=== PATIENT | female | born 1975 | race African-American/Black ===

== ENCOUNTER 2018-09-29 12:32 | Emergency (ER) | payer OTHER ==
[~2018-09-29] VITALS: Ht 170.2 cm; Wt 99.8 kg
[~2018-09-29 12:32] MED LIST: CIPROFLOXACIN500 M2 ORAL; NKM; PEPCID20 MG ORAL; PRILOSEC20 MG ORAL; TRAMADOL HCL50 MG ORAL; ZOFRAN ODT4 MG ORAL; ZOFRAN4 MG ORAL
[2018-09-29 12:38] VITALS: BP 136/93
--- NOTE | 2018-09-29 13:14 | Emergency Room Report ---
History of Present Illness General Chief Complaint: Skin Rash/Abscess Source: Patient Present Illness HPI 43-year-old female presents to the emergency department complaining of 7 out of 10 severity burning and itching insect bite to the medial left ankle since yesterday. Patient reports swelling, erythema, warmth and new onset of clear discharge as of this morning. Patient reports one other insect bite on the right ankle that is just itchy at this time. pt. denies fevers, chills or swollen tender lymph nodes. Denies lesions/rashes elsewhere on the body. Denies new medications or body washes or creams. Denies swelling of the lips, tongue , throat or airway. Denies wheezing, or shortness of breath. Denies recent travel , recent illness or ill contacts. denies blisters, oral lesions, or sloughing of the skin. Not UTD with Tdap. Allergies: Coded Allergies: No Known Allergies (Unverified , 08/21/14) Patient History Past Medical History: see triage record Past Surgical History: none Pertinent Family History: none Last Menstrual Period: 09/21/2018 Now: No Reviewed Nursing Documentation: PMH: Agreed; PSxH: Agreed Nursing Documentation-PMH Past Medical History: No History, Except For Hx Gastrointestinal Problems: Yes - gastritis Review of Systems All Other Systems: negative except mentioned in HPI Physical Exam Vital Signs Date Time Temp Pulse Resp B/P (MAP) Pulse Ox O2 Delivery O2 Flow Rate FiO2 09/29/18 12:38 98.2 90 20 136/93 95 Room Air Sp02 EP Interpretation: reviewed, normal General Appearance: no apparent distress, alert, GCS 15, non-toxic Head: normocephalic, atraumatic Eyes: bilateral eye normal inspection, bilateral eye PERRL ENT: hearing grossly normal, normal pharynx, no angioedema, normal voice, moist mucus membranes Neck: full range of motion, no meningismus, no bony tend, other - no stridor Respiratory: chest non-tender, lungs clear, normal breath sounds, no respiratory distress, no accessory muscle use, no wheezing, speaking full sentences Cardiovascular #1: regular rate, rhythm Gastrointestinal: normal bowel sounds, non tender, soft Rectal: deferred Genitourinary: normal inspection Musculoskeletal: back normal, gait/station normal, normal range of motion, non- tender Neurologic: alert, oriented x3, responsive, motor strength/tone normal, sensory intact, speech normal, grossly normal Psychiatric: judgement/insight normal Skin: rash - 2mm swollen erythematous and indurated inset bite on the medial left ankle. surrounding erythema as well. there is a 2 mm indurated insect bite on the right medial ankle without erythema. no blisters or vesicles. Lymphatic: no adenopathy Medical Decision Making PA Attestation Dr. Kelley is my supervising Physician whom patient management has been discussed with. Diagnostic Impression: Primary Impression: Insect bite of ankle, infected Qualified Codes: S90.562A - Insect bite (nonvenomous), left ankle, initial encounter; L08.9 - Local infection of the skin and subcutaneous tissue, unspecified; W57.XXXA - Bitten or stung by nonvenomous insect and other nonvenomous arthropods, initial encounter ER Course 43-year-old female presents to the emergency department complaining of 7 out of 10 severity burning and itching insect bite to the medial left ankle since yesterday. Patient reports swelling, erythema, warmth and new onset of clear discharge as of this morning. Patient reports one other insect bite on the right ankle that is just itchy at this time. pt. denies fevers, chills or swollen tender lymph nodes. Denies lesions/rashes elsewhere on the body. Denies new medications or body washes or creams. Denies swelling of the lips, tongue , throat or airway. Denies wheezing, or shortness of breath. Denies recent travel , recent illness or ill contacts. denies blisters, oral lesions, or sloughing of the skin Ddx considered but are not limited to insect bite, cellulitis, scabies, shingles , varicella, dermatitis, urticaria, eczema, tinea, viral exanthem, SJS Vital signs: are WNL, pt. is afebrile H&PE are most consistent with insect bite with secondary cellulitis no evidence of impending airway compromise or anaphylaxis. ORDERS: none required at this time, the diagnosis is clinical ED INTERVENTIONS: -Tdap. DISCHARGE: At this time pt. is stable for d/c to home. Will provide printed patient care instructions, and any necessary prescriptions. Care plan and follow up instructions have been discussed with the patient prior to discharge. Last Vital Signs Date Time Temp Pulse Resp B/P (MAP) Pulse Ox O2 Delivery O2 Flow Rate FiO2 7/19/19 12:38 98.2 90 20 136/93 (107) 95 Room Air Disposition: HOME, SELF-CARE Condition: Stable Scripts Hydrocortisone 2% Cream (ANTI-ITCH 2% CREAM) Y Cr 1 APPLIC TP Q6HR, #28 GM Prov: Galina Yates 09/29/18 Trimethoprim/Sulfamethoxazole 160/800* (BACTRIM DS TABLET*) 1 Each Tablet 1 TAB ORAL TWICE A DAY for 7 Days, #14 TAB Prov: Galina Yates 09/29/18 Cephalexin* (KEFLEX*) 500 Mg Capsule 500 MG ORAL EVERY 12 HOURS for 7 Days, #14 CAP 0 Refills Prov: Galina Yates 09/29/18 Departure Forms: Return to Work Return to Work Date: Oct 02, 2018 Work Restrictions: None Other Restrictions: please excuse pt. for 09/29/2018. Return to Full Activity: Oct 02, 2018 Patient Instructions: Insect Bite, [id number] Additional Instructions: Take medications as directed. Follow up with a Primary Care Provider in 3-5 days, even if your symptoms have resolved. --Please review list of primary care clinics, if you do not already have a primary care provider Return sooner to ED if new symptoms occur, or current symptoms become worse. - Please note that this Emergency Department Report was dictated using [email or web address] helper technology software, occasionally this can lead to erroneous entry secondary to interpretation by the dictation equipment. Galina Yates Sep 29, 2018 13:14
[2018-09-29] MEDS ORDERED: BACTRIM DS TAB1 EAC1 ORAL (13:16)
[2018-09-29] MEDS ORDERED: ANTI-ITCH28 G1 TP (13:16)
[2018-09-29] MEDS: Tetanus/Diptheria/Pertussis IM ONE (13:16)
[2018-09-29] MEDS ORDERED: CEPHALEXIN500 MG ORAL (13:16)
[2018-09-29 13:25] VITALS: BP 136/93
== END 2018-09-29 13:24 | disposition home or self-care (01) ==
LOC: EMR 13:15
DX: S90.562A Insect bite (nonvenomous), left ankle, initial encounter (principal); L08.9 Local infection of the skin and subcutaneous tissue, unspecified; W57.XXXA Bitten or stung by nonvenomous insect and other nonvenomous arthropods, initial encounter; Y92.9 Unspecified place or not applicable; Z23 Encounter for immunization
CPT/HCPCS: 90471; 90715; 99283

== ENCOUNTER 2018-10-17 16:22 | Emergency (ER) | payer OTHER ==
[~2018-10-17] VITALS: Ht 170.2 cm; Wt 108.9 kg
[~2018-10-17 16:22] MED LIST changes: +ANTI-ITCH28 G1 TP; +BACTRIM DS TAB1 EAC1 ORAL; +CEPHALEXIN500 MG ORAL
[2018-10-17 16:28] VITALS: BP 157/103
--- NOTE | 2018-10-17 16:35 | NUR ---
ED Nurse Note: Patient walked into ED c/o coughing for 2 weeks. patient reports itchiness on the throat and nose. patient is alert awake x4 ambulatory.
--- NOTE | 2018-10-17 17:06 | Emergency Room Report ---
History of Present Illness General Chief Complaint: Upper Respiratory Illness Source: Patient Present Illness HPI 43-year-old female presents to the emergency department complaining of itchy nose, sneezing, dry cough x2 weeks. Patient denies fevers or chills she reports her daughter recently was diagnosed with bronchitis and finished course of antibiotics. Patient states that she also finished a course of antibiotics and does not feel that she has a bacterial infection at this time. Patient denies recent travel she reports history of some allergies in the past she states that she took some montelukast and Claritin with no relief of her symptoms. Patient reports that she is unable to breathe easily through her nose she reports 5/10 in severity pressure in the bilateral sinuses she reports intermittent frontal headaches she denies photophobia, neck pain or stiffness. Patient denies purulent discharge. Dry sore throat and states that her cough is worse at night and in the early mornings. Patient denies history of acid reflux. Chest pain, palpitations, sudden onset of her headache, shortness of breath or wheezing. Pt. with hx of smoking but no longer smokers, no Hx of asthma or COPD. Allergies: Coded Allergies: No Known Allergies (Unverified , 08/21/14) Patient History Past Medical History: see triage record Past Surgical History: none Pertinent Family History: none Last Menstrual Period: 10/14/2018 Now: No Immunizations: UTD Reviewed Nursing Documentation: PMH: Agreed; PSxH: Agreed Nursing Documentation-PMH Past Medical History: No History, Except For Hx Gastrointestinal Problems: Yes - gastritis, C section Review of Systems All Other Systems: negative except mentioned in HPI Physical Exam Vital Signs Date Time Temp Pulse Resp B/P (MAP) Pulse Ox O2 Delivery O2 Flow Rate FiO2 10/17/18 16:28 98.2 75 18 157/103 97 Room Air Sp02 EP Interpretation: reviewed, normal General Appearance: no apparent distress, alert, GCS 15, non-toxic Head: normocephalic, atraumatic Eyes: bilateral eye normal inspection, bilateral eye PERRL ENT: hearing grossly normal, normal pharynx, normal voice, TMs + canals normal , uvula midline, moist mucus membranes, nasal congestion - Bilateral Turbinates are boggy and swollen, frontal maxillary sinus ttp bilaterally. Neck: full range of motion, no meningismus, no bony tend Respiratory: chest non-tender, lungs clear, normal breath sounds, no wheezing, speaking full sentences Cardiovascular #1: regular rate, rhythm Musculoskeletal: back normal, gait/station normal, normal range of motion, non- tender Neurologic: alert, oriented x3, responsive, motor strength/tone normal, sensory intact, normal gait, speech normal, grossly normal Psychiatric: judgement/insight normal Lymphatic: no adenopathy Medical Decision Making PA Attestation Dr. Flores is my supervising Physician whom patient management has been discussed with. Diagnostic Impression: Primary Impression: Rhinitis Qualified Codes: J30.9 - Allergic rhinitis, unspecified Additional Impression: Sinusitis nasal Qualified Codes: J01.10 - Acute frontal sinusitis, unspecified ER Course 43-year-old female presents to the emergency department complaining of itchy nose, sneezing, dry cough x2 weeks. Patient denies fevers or chills she reports her daughter recently was diagnosed with bronchitis and finished course of antibiotics. Patient states that she also finished a course of antibiotics and does not feel that she has a bacterial infection at this time. Patient denies recent travel she reports history of some allergies in the past she states that she took some montelukast and Claritin with no relief of her symptoms. Patient reports that she is unable to breathe easily through her nose she reports 5/10 in severity pressure in the bilateral sinuses she reports intermittent frontal headaches she denies photophobia, neck pain or stiffness. Patient denies purulent discharge. Dry sore throat and states that her cough is worse at night and in the early mornings. Patient denies history of acid reflux. Chest pain, palpitations, sudden onset of her headache, shortness of breath or wheezing. Pt. with hx of smoking but no longer smokers, no Hx of asthma or COPD. Ddx considered but are not limited to sinusitis, rhinitis, URI, pneumonia, PE, strep pharyngitis, meningitis. Vital signs: Pt.is afebrile VS are WNL H&PE are most consistent with allergic rhinitis and sinusitis with cough secondary to increased mucus production. Patient is nontoxic in appearance in no acute distress and I do not suspect an acute bacterial infection at this time. Due to pt. having bilateral symptoms and her sinus pressure began this week, has already completed a course of abx, I do not feel additional abx would be of benefit at this time. ORDERS: none required at this time, the diagnosis is clinical ED INTERVENTIONS: None required at this time. -I do not identify an emergent condition at this time. With current presentation , pt. is stable for close outpatient follow up and conservative treatment. D/ w pt. to return promptly to ED with worsening or new symptoms.- Pt. verbalizes' understanding and agreement with proposed treatment plan. DISCHARGE: At this time pt. is stable for d/c to home. Will provide printed patient care instructions, and any necessary prescriptions. Care plan and follow up instructions have been discussed with the patient prior to discharge. Last Vital Signs Date Time Temp Pulse Resp B/P (MAP) Pulse Ox O2 Delivery O2 Flow Rate FiO2 10/17/18 16:53 75 18 Room Air 10/17/18 16:28 98.2 157/103 (121) 97 Disposition: HOME, SELF-CARE Condition: Stable Scripts Codeine/Promethazine Hcl* (PROMETHAZINE-CODEINE SYRUP*) 118 Ml Syrup 5 ML ORAL Q6H PRN for For Cough, #120 ML 0 Refills Prov: Galina Yates 10/17/18 Fluticasone Propionate* (FLUTICASONE PROPIONATE*) 16 Gm [place].susp 1 SPRAY NASAL DAILY, #1 EA Prov: Galina Yates 10/17/18 Cetirizine Hcl* (ZYRTEC*) 10 Mg Tablet 10 MG ORAL DAILY, #30 TAB 0 Refills Prov: Galina Yates 10/17/18 Oxymetazoline HCl (Afrin) 15 Ml [place] 2 SPRAYS NASAL TWICE A DAY for 3 Days, #30 SPRAY Do not use for more than 3 days in her room. Prov: Galnia Yates 10/17/18 Referrals: [facility],REFERRING (PCP) Patient Instructions: Allergic Rhinitis, Sinusitis, Adult, [id number] Additional Instructions: Take medications as directed. *DO NOT USE AFRIN SPRAY FOR MORE THAN 3 DAYS IN A ROW Follow up with a Primary Care Provider in 3-5 days,FOR ENT ( EARS,NOSE, THROAT Specialist) REFERRAL even if your symptoms have resolved. --Please review list of primary care clinics, if you do not already have a primary care provider Return sooner to ED if new symptoms occur, or current symptoms become worse. Do not drink alcohol, drive, or operate heavy machinery while taking Cough Syrup -- as this may cause drowsiness. - Please note that this Emergency Department Report was dictated using [employer] mgr technology software, occasionally this can lead to erroneous entry secondary to interpretation by the dictation equipment. Galina Yates Oct 17, 2018 17:06
[2018-10-17] MEDS ORDERED: ZYRTEC10 MG ORAL (17:13)
[2018-10-17] MEDS ORDERED: FLUTICASONE PRO16 G1 NASAL (17:13)
[2018-10-17] MEDS ORDERED: AFRIN NASAL SPR30 ML NASAL (17:13)
[2018-10-17] MEDS ORDERED: PROMETHAZINE-C118 M1 ORAL (17:13)
[2018-10-17 17:40] VITALS: BP 157/103
--- NOTE | 2018-10-17 17:40 | NUR ---
ER DISCHARGE NOTE: Patient is cleared to be discharged per ALEJANDRO NAVARRO, pt is aox4, on room air, with stable vital signs. pt was given dc and prescription instructions, pt was able to verbalize understanding, pt id band removed without complications. pt is able to ambulate with steady gait. pt took all belongings.
== END 2018-10-17 17:40 | disposition home or self-care (01) ==
LOC: EMR 16:45
DX: J30.9 Allergic rhinitis, unspecified (principal); J01.10 Acute frontal sinusitis, unspecified; Z87.891 Personal history of nicotine dependence
CPT/HCPCS: 99282

== ENCOUNTER 2018-11-17 21:13 | Emergency (ER) | payer OTHER ==
[~2018-11-17] VITALS: Ht 170.2 cm; Wt 113.4 kg
[~2018-11-17 21:13] MED LIST changes: +AFRIN NASAL SPR30 ML NASAL; +FLUTICASONE PRO16 G1 NASAL; +PROMETHAZINE-C118 M1 ORAL; +ZYRTEC10 MG ORAL
--- NOTE | 2018-11-17 21:28 | NUR ---
ED Nurse Note: pt walked in c/o cough, pt reports she had it for past two months but progressively worsening, pt reports she was seen by a doctor and the doctor stated she has asthma and gave breathing but no relief. pt states she has been using inhaler but no relief as well. noted mild wheezing on LS to ascultation, will cont monitor. noted pt dry cough.
--- NOTE | 2018-11-17 21:37 | NUR ---
ED Nurse Note: called RT for breathing tx.
[2018-11-17 21:41] VITALS: BP 132/90
[2018-11-17] MEDS ORDERED: Albuterol/Ipratropium 3ml neb HHN ONE (21:45)
--- NOTE | 2018-11-17 21:45 | NUR ---
ED Nurse Note: RT at the bedside for breathing tx xray at the bedside.
--- NOTE | 2018-11-17 22:37 | Diagnostic Imaging Report ---
EXAM: XR Chest, 1 View CLINICAL HISTORY: SOB TECHNIQUE: Frontal view of the chest. COMPARISON: No relevant prior studies available. FINDINGS: Lungs: Unremarkable. No consolidation. Pleural space: Unremarkable. No pneumothorax. Heart: Unremarkable. No cardiomegaly. Mediastinum: Unremarkable. Bones/joints: Unremarkable. IMPRESSION: No evidence of acute pulmonary disease
[2018-11-17] MEDS ORDERED: ZITHROMAX250 MG ORAL (22:44)
[2018-11-17] MEDS ORDERED: ADULT WAL-100 MG/5 M ORAL (22:44)
--- NOTE | 2018-11-17 22:55 | NUR ---
ED Nurse Note: pt cleared to be d/c per ERMD, pt discharge and aftercare instruction provided w/ prescription, pt education done via discussion and handout, pt advised to follow up with pcp or return to ed if changes in condition, pt verbalized understanding and agrees with plan, vss, ambulatory w/ steady gait, left w/ all belongings.
[2018-11-17 22:56] VITALS: BP 125/76
--- NOTE | 2018-11-17 23:13 | Emergency Room Report ---
History of Present Illness General Chief Complaint: Upper Respiratory Illness Source: Patient Present Illness HPI Patient presents for nonproductive cough for several weeks, gradual onset prior to arrival. mild headache and associated sore throat, increased nasal congestion. Taking over the counter cough medications. Reports no fever. Prior history of asthma some chest tightness. No leg swelling or pain. No oral contraceptive use. Allergies: Coded Allergies: No Known Allergies (Unverified , 08/21/14) Patient History Past Medical History: see triage record Last Menstrual Period: 10/2018 Now: No Reviewed Nursing Documentation: PMH: Agreed; PSxH: Agreed Nursing Documentation-PMH Hx Asthma: Yes Hx Gastrointestinal Problems: Yes - gastritis, C section Review of Systems All Other Systems: negative except mentioned in HPI Physical Exam Vital Signs Date Time Temp Pulse Resp B/P (MAP) Pulse Ox O2 Delivery O2 Flow Rate FiO2 11/17/18 21:19 98.2 89 16 132/90 (104) 98 Room Air 11/17/18 21:49 21 Sp02 EP Interpretation: reviewed, normal General Appearance: normal inspection, well appearing, no apparent distress, alert, GCS 15 Head: atraumatic ENT: hearing grossly normal, normal voice, other - rhinorhea, nasal mucosa swelling Neck: normal inspection, full range of motion, supple, no bony tend Respiratory: normal inspection, no respiratory distress, no retraction, wheezing Cardiovascular #1: regular rate, rhythm, no edema Gastrointestinal: normal inspection, normal bowel sounds, non tender, soft, no guarding, no hernia Genitourinary: no CVA tenderness Musculoskeletal: normal inspection, back normal, normal range of motion Neurologic: normal inspection, alert, responsive, speech normal Psychiatric: normal inspection, judgement/insight normal, mood/affect normal Medical Decision Making Diagnostic Impression: Primary Impression: Asthma Additional Impression: Upper respiratory infection ER Course Patient presented for cough. Differential diagnosis included but was not limited to upper respiratory infection, tuberculosis, pneumonia, asthma, chronic bronchitis, foreign body, medication reaction, among others. Patient's clinical picture is benign and patient does not appear to require laboratory testing at this time. She was given a breathing treatment. Patient will be given prescriptions for medication for symptomatic treatment as well as antibiotics. Currently on oral steroids. Patients presentation is consistent with a secondary bacterial infection from a viral illness. Patient was advised to follow up with primary care physician for recheck. Patient is to return if worse or any concerns. Last Vital Signs Date Time Temp Pulse Resp B/P (MAP) Pulse Ox O2 Delivery O2 Flow Rate FiO2 11/17/18 22:56 97.8 85 16 125/76 100 Room Air 11/17/18 21:51 21 Status: improved Disposition: HOME, SELF-CARE Condition: Stable Scripts Azithromycin* (ZITHROMAX*) 250 Mg Tablet 250 MG ORAL DAILY, #6 TAB 0 Refills Take two tables once daily for 1 day, then one tablet once daily for 4 days. Prov: Mayco Fuentes MD 11/17/18 Guaifenesin* (ADULT WAL-TUSSIN*) 100 Mg/5 Ml Liquid 10 ML ORAL Q4H, #120 ML Prov: Mayco Fuentes MD 11/17/18 Referrals: NON PHYSICIAN (PCP) Patient Instructions: Asthma, Adult Mayco Fuentes MD Nov 17, 2018 23:13
--- NOTE | 2018-11-19 15:21 | Cardiology Report ---
APPROVED REPORT EKG Measurement Heart [id number] Normal sinus rhythm Normal ECG
== END 2018-11-17 22:56 | disposition home or self-care (01) ==
LOC: EMR 21:40
DX: J06.9 Acute upper respiratory infection, unspecified (principal); J45.909 Unspecified asthma, uncomplicated
CPT/HCPCS: 71045; 93005; 94664; 99284; J7620

== ENCOUNTER 2019-03-30 19:25 | Emergency (ER) | payer OTHER ==
[~2019-03-30] VITALS: Ht 170.2 cm; Wt 104.3 kg
[~2019-03-30 19:25] MED LIST changes: +ADULT WAL-100 MG/5 M ORAL; +ZITHROMAX250 MG ORAL
[2019-03-30] MEDS ORDERED: ALBUTEROL2.5 MG/3 M INH (19:40)
[2019-03-30] MEDS ORDERED: WIXELA 250-501 EACH IH (19:40)
[2019-03-30 19:45] VITALS: BP 157/100
--- NOTE | 2019-03-30 19:45 | NUR ---
ED Nurse Note: Pt walked into ED from home for c/o urinary frequency x1 week. Pt also reports lower abdominal pain that radiates to her back and has noticed vaginal spotting. Pt is aaox4, no cardiac or respiratory distress noted. Pt is ambulatory with steady gait, will continue to monitor.
[2019-03-30 20:44] LABS: APPEARANCE,URINE CLEAR; BILIRUBIN, URINE NEGATIVE (NEGATIVE); COLOR,URINE PALE YELLOW; GLUCOSE, URINE (UA) NEGATIVE (NEGATIVE); KETONES,URINE NEGATIVE (NEGATIVE); LEUKOCYTE ESTERASE ,URINE NEGATIVE (NEGATIVE); NITRITE,URINE NEGATIVE (NEGATIVE); PH,URINE 5 (4.5-8.0); PROTEIN,URINE NEGATIVE (NEGATIVE); UROBILINOGEN,URINE NORMAL MG/DL (0.0-1.0)
--- NOTE | 2019-03-30 20:58 | Emergency Room Report ---
History of Present Illness General Chief Complaint: Female Urogenital Problems Source: Patient Present Illness HPI 43-year-old female with history of type 2 diabetes who is noncompliant with taking metformin here complaining of 1 week of urinary frequency and urgency as well as dysuria. Complains of low back pain however denies flank pain. Complains of nausea every month with her menses. Reports that she just finished her menstruation and she still feels nauseated. Patient is sexually active and denies at this time. Denies vaginal discharge. Reports that she has never had high blood pressure in the past. Denies chest pain, shortness of breath, palpitation, headache and dizziness. Reports that she has not been seen by her primary care in a long time. Patient takes her metformin every now and then. Is in no apparent distress. Denies diffuse abdominal pain , nausea vomiting, diarrhea, fever and chills, constipation. Denies blood in urine. Allergies: Coded Allergies: No Known Allergies (Unverified , 08/21/14) Patient History Past Medical History: see triage record Past Surgical History: unable to obtain Pertinent Family History: none Last Menstrual Period: 03/14/18 Now: No Immunizations: UTD Reviewed Nursing Documentation: PMH: Agreed; PSxH: Agreed Nursing Documentation-PMH Past Medical History: No History, Except For Hx Asthma: Yes Hx Diabetes: Yes Hx Gastrointestinal Problems: Yes - gastritis, C section Review of Systems All Other Systems: negative except mentioned in HPI Physical Exam Vital Signs Date Time Temp Pulse Resp B/P (MAP) Pulse Ox O2 Delivery O2 Flow Rate FiO2 03/30/19 19:34 98.2 77 14 157/100 (119) 98 Room Air Sp02 EP Interpretation: reviewed, normal General Appearance: no apparent distress, alert, GCS 15, non-toxic Head: normocephalic, atraumatic Eyes: bilateral eye normal inspection, bilateral eye PERRL ENT: hearing grossly normal, normal pharynx, no angioedema, normal voice Neck: full range of motion, supple, no meningismus, supple/symm/no masses Respiratory: chest non-tender, lungs clear, normal breath sounds, no rhonchi, no respiratory distress, no retraction, no wheezing, speaking full sentences Cardiovascular #1: regular rate, rhythm, no edema, no murmur, normal capillary refill Gastrointestinal: normal bowel sounds, non tender, soft, non-distended, no guarding, no rebound Rectal: deferred Genitourinary: no CVA tenderness Musculoskeletal: back normal Neurologic: alert, motor strength/tone normal, oriented x3, sensory intact, responsive, speech normal Psychiatric: judgement/insight normal, memory normal, mood/affect normal, no suicidal/homicidal ideation Skin: no rash Lymphatic: no adenopathy Medical Decision Making PA Attestation All diagnoses and treatment plans were reviewed and discussed with my supervising physician Dr. Cabrales Diagnostic Impression: Primary Impression: UTI (urinary tract infection) ER Course 43-year-old female with history of type 2 diabetes who is noncompliant with taking metformin here complaining of 1 week of urinary frequency and urgency as well as dysuria. Complains of low back pain however denies flank pain. Complains of nausea every month with her menses. Reports that she just finished her menstruation and she still feels nauseated. Patient is sexually active and denies at this time. Denies vaginal discharge. Reports that she has never had high blood pressure in the past. Denies chest pain, shortness of breath, palpitation, headache and dizziness. Reports that she has not been seen by her primary care in a long time. Patient takes her metformin every now and then. Is in no apparent distress. Denies diffuse abdominal pain , nausea vomiting, diarrhea, fever and chills, constipation. Denies blood in urine. Ddx considered but are not limited to: UTI, pyelonephritis, urinary incontinence , prolapsed bladder Vital signs: are WNL, pt. is afebrile H&PE are most consistent with: UTI, ORDERS: UA, urine cx, urine test, Zofran, Keflex, Pyridium ED INTERVENTIONS: None required at this time. DISCHARGE: At this time pt. is stable for d/c to home. Will provide printed patient care instructions, and any necessary prescriptions. Care plan and follow up instructions have been discussed with the patient prior to discharge. Patient to follow-up with primary care provider, continue taking metformin, blood pressure medication may need to be started. Patient needs complete blood work. At this time patient has no acute symptoms and no further work-up is needed. Slight amount of infection noted in urine however urine culture is pending.the patient status status patient to be treated aggressively with antibiotics for UTI Last Vital Signs Date Time Temp Pulse Resp B/P (MAP) Pulse Ox O2 Delivery O2 Flow Rate FiO2 03/30/19 19:45 98.2 77 14 157/100 98 Room Air Disposition: HOME, SELF-CARE Condition: Stable Scripts Ondansetron (Zofran) 4 Mg Tablet 4 MG SL Q6H PRN for Nausea & Vomiting, #14 TAB Prov: Jacki Rg 03/30/19 Phenazopyridine Hcl* (PYRIDIUM*) 200 Mg Tablet 200 MG ORAL THREE TIMES A DAY for 2 Days, #6 TAB 0 Refills Prov: Jacki Rg 03/30/19 Cephalexin* (KEFLEX*) 500 Mg Capsule 500 MG ORAL EVERY 6 HOURS for 7 Days, #28 CAP Prov: Jacki Rg 03/30/19 Referrals: [facility]ERR[facility] (PCP) Patient Instructions: Urinary Tract Infection Additional Instructions: Take medication as directed, follow-up with your primary care provider, you need to start taking her metformin also have your primary doctor evaluate your blood pressure as you may be needing to starting blood pressure medication. Increase oral hydration Jacki Rg Mar 30, 2019 20:58
[2019-03-30] MEDS ORDERED: PHENAZOPYRIDIN200 MG ORAL (20:59)
[2019-03-30] MEDS ORDERED: CEPHALEXIN500 MG ORAL (20:59)
[2019-03-30] MEDS ORDERED: ZOFRAN4 M1 ORAL (21:02)
[2019-03-30 21:05] VITALS: BP 148/90
--- NOTE | 2019-03-30 21:05 | NUR ---
ER DISCHARGE NOTE: Patient is cleared to be discharged per ERMD, pt is aox4, on room air, with stable vital signs. pt was given dc and prescription instructions, pt was able to verbalize understanding, pt id band removed. pt is able to ambulate with steady gait. pt took all belongings.
[2019-03-30] MEDS ORDERED: ZOFRAN4 M1 SL (21:06)
== END 2019-03-30 21:05 | disposition home or self-care (01) ==
LOC: EMR 20:02
DX: N39.0 Urinary tract infection, site not specified (principal); J45.909 Unspecified asthma, uncomplicated; E11.9 Type 2 diabetes mellitus without complications; Z91.14 Patient's other noncompliance with medication regimen; Z79.84 Long term (current) use of oral hypoglycemic drugs
CPT/HCPCS: 81003; 81025; Z7502; 99283